=== PATIENT | male | born 1955 | race Caucasian/White ===

== ENCOUNTER 2016-10-17 15:35 | Emergency (ER) | payer MEDICARE ==
[2016-10-17 15:47] VITALS: BMI 22.2
[2016-10-17 16:06] LABS: AUTOMATED LYMPH 25.5 % (17-44); AUTOMATED MONOCYTE 9.7 % (3-10); AUTOMATED NEUTROPHIL 61.8 % (45-76); MPV 7.4 fL (7.4-10.4)
[2016-10-17 16:13] LABS: BLOOD UREA NITROGEN 12 MG/DL (9-20); CALC CORRECTED 8.8 MG/DL (8.4-10.2); CALCIUM 8.6 MG/DL (8.4-10.2); CALCULATED OSMOLALITY 266 MOs/Kg (270-290); CHLORIDE 102 mEq/L (98-107); GLUCOSE 106 MG/DL (70-99); SODIUM LEVEL 138 mEq/L (137-146); TOTAL PROTEIN 6.8 G/DL (6.3-8.2)
[2016-10-17 16:19] LABS: PARTIAL THROMB. TIME 32.4 SEC (22-35); PT-INR 1.4
--- NOTE | 2016-10-17 16:25 | DIRPT ---
CLINICAL DATA: Chest pain EXAM: CHEST 2 VIEW COMPARISON: 08/13/2016 chest radiograph. FINDINGS: There is a stable configuration of the median sternotomy wires, noting discontinuities involving each of the sternotomy wires. Stable cardiomediastinal silhouette with top-normal heart size. No pneumothorax. No pleural effusion. There is chronic patchy opacity in the medial right lung base, which appears mildly increased in the interval, and has been present back to the 03/03/[address] No additional focal lung opacity. No pulmonary edema. Hyperinflated lungs. IMPRESSION: 1. Chronic patchy medial right lung base opacity, mildly increased in the interval, favor acute on chronic infectious or inflammatory process. 2. Hyperinflated lungs, suggesting COPD. 3. 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 Electronically Signed By: Scooter Baxter M.D. On: 10/17/2016 16:22
[2016-10-17 18:20] VITALS: BP 180/98; PULSE 73; TEMP 97.4
[2016-10-17] MEDS ORDERED: AZITHROMYCIN 250 MG TAB PO ONE (18:44)
[2016-10-17] MEDS ORDERED: OXYCODONE HCL 5 MG TABLET PO STA (18:51)
--- NOTE | 2016-10-17 18:57 | EDPRACDOC ---
- General Information Chief Complaint: Chest Pain Stated Complaint: CHEST PAIN Time Seen by Provider: 10/17/16 18:22 Information Source: Patient Mode of Arrival: Car Home Medications: Home Medications Alprazolam [Xanax] 1 mg PO Q8H PRN 12/02/12 Fluoxetine HCl [Prozac] 40 mg PO DAILY 04/13/14 Hydrocodone Bit/Acetaminophen [[place] 10-325 Tablet] 1 each PO Q8H PRN #100 Atorvastatin Calcium [Lipitor] 80 mg PO DAILY 07/01/15 Albuterol Sulfate [Proventil Hfa] 2 puff INH Q4H PRN 10/11/15 Guaifenesin [Mucinex] 1,200 mg PO BID PRN 10/11/15 Warfarin Sodium [Coumadin] 4 mg PO HS 01/18/16 Furosemide [Lasix] 40 mg PO BID #120 tab 05/30/16 Lisinopril 10 mg PO DAILY #90 tablet 05/30/16 Metoprolol Tartrate 25 mg PO BID #120 tablet 05/30/16 Albuterol/Ipratropium Neb [Duoneb] 3 ml NEB Q6H PRN 08/13/16 Guaifenesin [Mucinex] 600 mg PO BID #20 tablet.er 08/13/16 Isosorbide Mononitrate [Isosorbide Mononitrate ER] 30 mg PO DAILY 08/13/16 Oxycodone HCl/Acetaminophen [Percocet 5-325 mg Tablet] 1 each PO Q4 #20 tablet 08/13/16 Azithromycin 250 mg PO DAILY #4 tablet 10/17/16 Allergies/Adverse Reactions: Allergies Allergy/AdvReac Type Severity Reaction Status Date / Time Iodinated Contrast Media - Allergy Unknown Anaphylaxis Verified 10/17/16 15:38 IV Dye * [IV Dye, Iodine Containing Contrast ] - History of Present Illness Onset: last night HPI: PT PRESENTS WITH RIGHT LATERAL CHEST PAIN WITH WHEEZING FOR THE LAST DAY. Chest Pain Location: Reports: Right Chest Pain Radiation: Reports: None Symptoms Occur: Reports: At Rest Cardiac Risk Factors: Reports: Smoker Cardiac History of: Reports: [place], CABG Pain Description: Reports: Sharp Pain Severity: Moderate Pain Worsens With: Reports: Breathing Pain Improves With: Reports: Rest Associated Signs and Symptoms: Reports: SOB. Denies: Palpitations, Abdominal Pain ED Past Medical History - History Reviewed Yes Nurses notes reviewed and agree except as marked - Patient Medical History Neurological History: Reports: Cerebrovascular Accident Cardiac History: Reports: Coronary Artery Disease, Atrial Fibrillation, Hypertension, Congestive Heart Failure (ECHO 04/2014: EF 55-60%. 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 Denies: Depression, Substance Use Disorder Systemic History: Reports: Cancer (SKIN) Surgical History: Reports: Hernia Surgery, Other (AV replacement x 2, repair of thoracic aneurysm). Denies: Tonsillectomy/Adnoidectomy - Family Medical History Reports: Hypertension (daughters), Stroke (mother), Cardiac Disorders (father). Denies: Diabetes - Social Medical History Smoking Status: Heavy tobacco smoker (5 or more cigarettes/day or daily pipe/ cigar) Social History: Denies: Substance Use Disorder Lives With: Family Lives In: Home EDM Review of Systems - Review of Systems ROS Negative Except as Marked: Yes All systems reviewed and were negative except as marked Constitutional: negative: Fever Respiratory: Shortness of Breath, Wheezing Cardiovascular: Chest Pain (RIGHT LATERAL) - Physical Exam Constitutional: Alert Oriented to: Time, Person, Place Last recorded Vital Signs: Last Vital Signs Temp 97.4 F L 10/17/16 18:19 Pulse 73 10/17/16 18:19 Resp 24 10/17/16 18:19 BP 180/98 H 10/17/16 18:19 Pulse Ox 98 10/17/16 18:19 Oxygen Pulse Oxygen Saturation 98 O2 Device Room Air Oxygen Flow Rate Fraction of Inspired Oxygen ( FIO2) - HEENT Head: negative: Deformity, Laceration Eye Exam: negative: Conjunctival Injection, Pale Conjunctiva Oropharynx: negative: Membranes Dry Nose: negative: Congestion, Discharge Neck: negative: Limited ROM - Respiratory/Cardiovascular Respiratory: Wheezes (FAINT RIGHT SIDED WHEEZING). negative: Accessory Muscle Use, Diminished, Stridor, Tachypnea Cardiovascular: negative: Bradycardia, Tachycardia, Diastolic murmur - Musculoskeletal Extremities: Radial Pulse (PALPABLE) - Integumentary Skin: Warm, Dry. negative: Rash - Neurologic Memory Impaired: Normal Motor Function: Normal Mood Description: Anxious, Appropriate Thought: Coherent Perception: Normal ED Chest Pain Exam - Respiratory/Cardiovascular Chest Palpation: Tender, Reproduces Pain - Results 10/17/16 15:50 10/17/16 15:50 WBC 6.7 xk/uL (3.8-10.8) 10/17/16 15:50 RBC 3.75 xM/uL (4.70-6.10) L 10/17/16 15:50 Hgb 11.9 g/dL (14.0-18.0) L 10/17/16 15:50 Hct 35.9 % (42-52) L 10/17/16 15:50 MCV 96 fL (80-94) H 10/17/16 15:50 MCH 31.8 pg (27-32) 10/17/16 15:50 MCHC 33.3 g/dl (33-36) 10/17/16 15:50 RDW 14.5 % (11.5-14.5) 10/17/16 15:50 Plt Count 171 xk/uL (130-400) 10/17/16 15:50 MPV 7.4 fL (7.4-10.4) 10/17/16 15:50 Neut % (Auto) 61.8 % (45-76) 10/17/16 15:50 Lymph % (Auto) 25.5 % (17-44) 10/17/16 15:50 Payne % (Auto) 9.7 % (3-10) 10/17/16 15:50 Eos % (Auto) 2.0 % (0-5) 10/17/16 15:50 Baso % (Auto) 1.0 % (0-2) 10/17/16 15:50 Absolute Neuts (auto) 4.09 xk/uL (1.7-8.2) 10/17/16 15:50 Absolute Lymphs (auto) 1.68 xk/uL (0.65-4.75) 10/17/16 15:50 PT 14.5 SEC (9.2-11.2) H 10/17/16 15:50 INR 1.4 10/17/16 15:50 APTT 32.4 SEC (22-35) 10/17/16 15:50 Sodium 138 mEq/L (137-146) 10/17/16 15:50 Potassium 3.6 mEq/L (3.5-5.1) 10/17/16 15:50 Chloride 102 mEq/L (98-107) 10/17/16 15:50 Carbon Dioxide 26 mMOL/L (22-33) 10/17/16 15:50 Anion Gap 14 mEq/L (8-16) 10/17/16 15:50 BUN 12 MG/DL (9-20) 10/17/16 15:50 Creatinine 0.70 MG/DL (0.66-1.25) 10/17/16 15:50 Estimated GFR (MDRD) > 60 mL/min (>=60) 10/17/16 15:50 Glucose 106 MG/DL (70-99) H 10/17/16 15:50 Calculated Osmolality 266 MOs/Kg (270-290) L 10/17/16 15:50 Calcium 8.6 MG/DL (8.4-10.2) 10/17/16 15:50 Corrected Calcium 8.8 MG/DL (8.4-10.2) 10/17/16 15:50 Total Bilirubin 0.8 MG/DL (0.2-1.3) 10/17/16 15:50 AST 29 IU/L (17-59) 10/17/16 15:50 ALT 28 IU/L (21-72) 10/17/16 15:50 Alkaline Phosphatase 91 IU/L (50-160) 10/17/16 15:50 Troponin I < 0.01 ng/mL (<.04) 10/17/16 15:50 [id number]-M-Cstcccdfsrj Pept 3560 pg/mL (0-900) H 10/17/16 15:50 Total Protein 6.8 G/DL (6.3-8.2) 10/17/16 15:50 Albumin 3.8 G/DL (3.5-5.0) 10/17/16 15:50 Lab Results 10/17/16 10/17/16 10/17/16 15:50 15:50 15:50 WBC 6.7 RBC 3.75 L Hgb 11.9 L Hct 35.9 L MCV 96 H MCH 31.8 MCHC 33.3 RDW 14.5 Plt Count 171 MPV 7.4 Neut % (Auto) 61.8 Lymph % (Auto) 25.5 Payne % (Auto) 9.7 Eos % (Auto) 2.0 Baso % (Auto) 1.0 Absolute Neuts (auto) 4.09 Absolute Lymphs (auto) 1.68 PT 14.5 H INR 1.4 APTT 32.4 Sodium 138 Potassium 3.6 Chloride 102 Carbon Dioxide 26 Anion Gap 14 BUN 12 Creatinine 0.70 Estimated GFR (MDRD) > 60 Glucose 106 H Calculated Osmolality 266 L Calcium 8.6 Corrected Calcium 8.8 Total Bilirubin 0.8 AST 29 ALT 28 Alkaline Phosphatase 91 Troponin I < 0.01 [id number]-[id number]-Pfgwdndzumq Pept 3560 H Total Protein 6.8 Albumin 3.8 Laboratory Results - last 24 hr 10/17/16 10/17/16 10/17/16 15:50 15:50 15:50 WBC 6.7 RBC 3.75 L Hgb 11.9 L Hct 35.9 L MCV 96 H MCH 31.8 MCHC 33.3 RDW 14.5 Plt Count 171 MPV 7.4 Neut % (Auto) 61.8 Lymph % (Auto) 25.5 Payne % (Auto) 9.7 Eos % (Auto) 2.0 Baso % (Auto) 1.0 Absolute Neuts (auto) 4.09 Absolute Lymphs (auto) 1.68 PT 14.5 H INR 1.4 APTT 32.4 Sodium 138 Potassium 3.6 Chloride 102 Carbon Dioxide 26 Anion Gap 14 BUN 12 Creatinine 0.70 Estimated GFR (MDRD) > 60 Glucose 106 H Calculated Osmolality 266 L Calcium 8.6 Corrected Calcium 8.8 Total Bilirubin 0.8 AST 29 ALT 28 Alkaline Phosphatase 91 Troponin I < 0.01 Jdr-[id number]-Gshyjylnrjf Pept 3560 H Total Protein 6.8 Albumin 3.8 Laboratory Results 10/17/16 15:50 10/17/16 15:50 - EKG EKG #1 EKG Time: 15:50 -: Yes EKG interpreted by me Rate: bpm: 68 Rhythm: NSR Block: LBBB ST: Nonsp Comparison: 08/13/16 Decision Time to Discharge: 19:00 - Departure Yes I personally saw and evaluated the patient. Disposition: Home Condition: Stable Final Diagnosis: Pneumonia Instructions: Community Acquired Pneumonia (ED) Education/Counseling Given To: Patient, Family Member Education/Counseling Given Regarding: Diagnosis, Treatment, Prognosis, Follow Up Referrals: Chon Varela MD [Primary Care Provider] - Call for Appointment Prescriptions: Azithromycin 250 mg PO DAILY #4 tablet Additional Instructions: STOP SMOKING. RETURN IF WORSENING.
== END 2016-10-17 19:15 | disposition home or self-care (01) ==
LOC: ED 15:35
DX: J18.9 Pneumonia, unspecified organism (principal); I25.10 Atherosclerotic heart disease of native coronary artery without angina pectoris; I48.91 Unspecified atrial fibrillation; I10 Essential (primary) hypertension; I50.9 Heart failure, unspecified; E78.00 Pure hypercholesterolemia, unspecified; J44.9 Chronic obstructive pulmonary disease, unspecified; J45.909 Unspecified asthma, uncomplicated; K21.9 Gastro-esophageal reflux disease without esophagitis; F17.200 Nicotine dependence, unspecified, uncomplicated; Z95.2 Presence of prosthetic heart valve; Z79.01 Long term (current) use of anticoagulants; Z79.899 Other long term (current) drug therapy
CPT/HCPCS: 36415; 71020; 80053; 83880; 84484; 85025; 85610; 85730; 93005; 99284; A9270; J3490